=== PATIENT | male | born 1985 | race Caucasian/White ===

== ENCOUNTER 2016-12-06 21:29 | Emergency (ER) | payer SELFPAY ==
--- NOTE | 2016-12-06 21:55 | ED ORDER SUMMARY ---
..... Patient: RAZA HARRY OrderSheet [facility] VisitID: [id number] [address] [place] [address] 31y, M Registration Date/Time: 12/06/2016 ORDER SHEET Weight: 68.0 kg (stated) Allergies: No Known Drug Allergy GENERAL ORDERS: Irrigate Wounds (22:02 12/06/2016 HBivens A.R.N.P.) (22:03 JDeElena R.N.) Dress Wounds (22:12/06/2016 HBivens A.R.N.P.) (22:03 JDeElena R.N.) MEDICATION ORDERS: Tdap IM 0.5 mL (NOW, per protocol) (21:38 12/06/2016 Katharine R.N. verbal order read back to HBivens A.R.N.P.) (Ack 21:38 JDeElensukhjinder R.N.) (21:39 JDeElena R.N.) IV FLUIDS: ORDER SHEET NOTES: [Electronically signed by Paras Mauro R.N. (22:05 12/06/2016)] [Electronically signed by Rafaela CrowR.N.PGayatri (22:25 12/06/2016)] [Electronically locked/signed by Paras Mauro R.N. (22:12/06/2016)]
--- NOTE | 2016-12-06 21:55 | ED NURSING NOTES ---
Clinical Report - Nurses [facility] [address] [place] [address] 12/06/2016 21:29 Patient: RAZA HARRY TRIAGE Triage time 21:32. Acuity: LEVEL 4. Chief Complaint: DOG BITE (Was in the bushes, police dog found him. One bite to R thigh.). Alert. No acute distress. SEPSIS SCREEN: Sepsis Screen: negative. Negative (no infection suspected/documented). --21:36 Paras Mauro R.N. 21:32 12/06/16. BP: 113/84 (regular adult cuff) taken on the left arm, via an automated monitor, while sitting. HR: 87 (normal rate). RR: 16 (regular, unlabored and normal). O2 saturation: 100% on room air. Temp: 97.6 F (oral). Pain level now: 10/17. --21:36 Paras Mauro R.N. Weight: 68 kg stated. Height/Length: 65 inches Per Patient. BMI: 25. --21:33 Paras Mauro R.N. Medications None. --21:34 Paras Mauro R.N. Medication/allergy information source: the patient. --21:36 Paras Mauro R.N. Allergies No Known Drug Allergy. --21:34 Paras Mauro R.N. History Historian: police. Arrived in police custody in police custody and accompanied by police. Location of injuries: right thigh. This occurred just prior to arrival. Circumstances: This was a "provoked" attack. 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 PAST MEDICAL HX: Tetanus status: unknown. SOCIAL HX: Current every day heavy tobacco smoker (cigarette). History of heavy drug use: heroin, methamphetamines. Recently used drugs today. No alcohol use. He has not traveled outside the [place] The patient was not exposed to MRSA. ABUSE ASSESSMENT: Abuse assessment: The patient was asked "Do you feel safe in your home?" and "Has anyone hurt you or threatened to hurt you?". No report of abuse. SELF HARM ASSESSMENT: A self harm assessment was performed. The patient answered "no" to the question "Do you have thoughts of harming or killing yourself?" and "Have you recently had thoughts about harming or killing others?". FALL RISK ASSESSMENT: Fall risk assessment completed. No fall risk identified. NUTRITIONAL RISK ASSESSMENT: The nutritional risk assessment revealed no deficiencies. FUNCTIONAL ASSESSMENT: Functional assessment: no impairments noted. LEARNING NEEDS ASSESSMENT: The learning needs assessment revealed no barriers. SKIN INTEGRITY ASSESSMENT: Skin integrity risk assessment completed. No skin integrity risk identified. --21:36 Paras Mauro R.N. Assessment GENERAL / NEURO / PSYCH: Alert. Oriented X 4. Appears in no acute distress. Ezequiel Coma Scale: 15- eyes open spontaneously (4); best verbal response- oriented x 4 (5); best motor response- obeys commands (6). Patient appears calm and cooperative. RESPIRATORY: Respirations not labored. SKIN: Skin is warm and dry. --21:36 Paras Mauro R.N. Interventions ID band on patient. To treatment room. --21:36 Paras Mauro R.N. PHYSICAL ASSESSMENT Ambulatory to room. GENERAL / NEURO / PSYCH: Alert. Oriented X 4. Appears in no acute distress. RESPIRATORY: Respirations not labored. CVS: Capillary refill less than 2 seconds. EXTREMITIES: Right thigh: multiple puncture wounds (puncture wound x 4, multiple abrasions noted to thigh.). SKIN: Skin is warm and dry. Infection. --21:36 Paras Mauro R.N. NURSING PROGRESS NOTES The initial plan of care for this patient has been created This plan of care was discussed with the patient. Reassurance given to the patient. Two patient identifiers checked. Call light placed in reach. Side rails up x 1. Bed placed in lowest position. Brakes of bed on. --21:37 Paras Mauro R.N. Wound cleansed with sterile saline. --21:37 Paras Mauro R.N. 21:39 12/06/2016 TDAP IM 0.5 mL given. (Lot#: [id number], expiration date: 05/17/2018, Dynamometer Repairer: sanofi pasteur). Given in the left deltoid. Allergies verified and confirmed 5 rights. Vaccine information statement provided to the patient. --21:39 Paras Mauro R.N. 21:40. Wound cleansed with Hibiclens. Wound irrigated with sterile NS. --21:50 ChasMojgan, ER Tech1 21:47. WOUND REPAIR: Assisted by one tech. Procedure: wound repaired with steri-strips. Post-procedure: dressing applied. --21:51 Chas, Mojgan, ER Tech1 22:03 12/06/2016 TDAP IM Response: no adverse reaction. --22:03 Paras Mauro R.N. DISPOSITION / DISCHARGE Departure time: 2200. Condition at departure: stable. The goals identified in the patient's plan of care were met. No learning barriers present. Discharge instructions provided and reviewed with the patient (Police). Patient verbalized understanding. Written instructions provided in [place]i. Verbalized understanding (Police). ( Raza and police verbalize understanding of d/c instructions. They have no questions and voice no concerns at this time. Raza is clear to book at this time.). The patient was discharged by the nurse practitioner. He was discharged to police department facility and accompanied by a police escort. He left the Emergency Department ambulatory and via police department vehicle. EZEQUIEL COMA SCORE: Ezequiel Coma Scale: 15- eyes open spontaneously (4); best verbal response- oriented x 4 (5); best motor response- obeys commands (6). --22:05 Paras Mauro R.N. 22:03 12/06/16. BP: deferred. HR: deferred. RR: deferred. O2 saturation: deferred. Temp: deferred. Pain level now deferred. --22:05 Paras Mauro R.N. Locked/Released at 12/06/2016 22:05 by Paras Mauro R.N.
--- NOTE | 2016-12-06 21:55 | ED ORDER SUMMARY ---
..... Patient: RAZA HARRY OrderSheet [facility] VisitID: [id number] [address] [place] [address] 31y, M Registration Date/Time: 12/06/2016 ORDER SHEET Weight: 68.0 kg (stated) Allergies: No Known Drug Allergy GENERAL ORDERS: Irrigate Wounds (22:02 12/06/2016 HBivens A.R.N.P.) (22:03 JDeElena R.N.) Dress Wounds (22:12/06/2016 HBivens A.R.N.P.) (22:03 JDeElena R.N.) MEDICATION ORDERS: Tdap IM 0.5 mL (NOW, per protocol) (21:38 12/06/2016 Katharine R.N. verbal order read back to HBivens A.R.N.P.) (Ack 21:38 JDeElensukhjinder R.N.) (21:39 JDeElena R.N.) IV FLUIDS: ORDER SHEET NOTES: [Electronically signed by Paras Mauro R.N. (22:05 12/06/2016)] [Electronically signed by Rafaela CrowR.N.PGayatri (22:25 12/06/2016)] [Electronically locked/signed by Paras Mauro R.N. (22:12/06/2016)]
--- NOTE | 2016-12-06 21:55 | ED CLINICAL REPORT ---
Clinical Report - Physicians/Mid Levels [facility] [address] [place] [address] 12/06/2016 21:29 Patient: RAZA HARRY Time Seen: 2127; upon arrival, initial patient contact, initial documentation, patient care assumed. Arrived- In handcuffs. Police present. Historian- patient and police. HISTORY OF PRESENT ILLNESS Location of injuries- right thigh. Chief Complaint: DOG BITE. The injury occurred just prior to arrival. The animal reportedly appeared well and is up to date on immunizations (pt running from police, got bit by police k9). Occurred on a street. 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 REVIEW OF SYSTEMS No swelling, numbness, weakness or tingling. All systems otherwise negative, except as recorded above. PAST HISTORY Negative. Tetanus immunization status is unknown. SOCIAL HISTORY Heavy tobacco smoker. Occasional alcohol use. History of heavy IV drug use: heroin, methamphetamines, marijuana. Recently used drugs just prior to arrival. Under influence in ED. ADDITIONAL NOTES The nursing notes have been reviewed with agreement regarding the chief complaint, HPI, ROS, PMH and patient medications and allergies. PHYSICAL EXAM Vital Signs: 12/06/2016 21:32 BP: 113/84. HR: 87. RR: 16. O2 saturation: 100%. Temp: 97.6 F. Pain level now: 3/10. Have been reviewed as normal and appear to be correct. Appearance: Alert. Oriented X3. No acute distress. Head: Head normal on inspection and non-tender. Eyes: Eyes normal inspection. ENT: Nose normal on inspection. Mouth normal on inspection. Neck: Normal inspection. Neck non-tender. Painless ROM. Respiratory: Chest normal on inspection. Skin: Skin intact. Skin warm and dry. Normal skin color. Normal skin turgor. Extremities: Abnormal inspection. Extremities not atraumatic. Pelvis stable. Right thigh: mild tenderness and subcutaneous 1.0 cm laceration located in the anterior and medial aspect of upper thigh. Neurovascular intact distally. (lac/pw noted to thigh, approx 1/2 cm wide, no active bleeding). No erythema, swelling, abrasion, ecchymosis or puncture wound. No foreign body or deformity. No lower extremity edema. Neuro: Oriented X 3. No motor deficit. No sensory deficit. PROGRESS AND PROCEDURES Course of Care: recommended partial closure with staple, pt declined, stating he would let it heal on its own, pantera were paper not his leg. Patient counseled in person regarding the patient's stable condition and diagnosis. Differential Diagnosis: Other possible considerations: dog bite. Above considerations are based on history and physical exam. Differential diagnosis was discussed with patient. Disposition: Discharged home in good and improved condition (21:55). Condition: good and stable. CLINICAL IMPRESSION Single deep dog bite to the right thigh. INSTRUCTIONS Protect wound and keep wound area clean. Soak in warm soapy water twice daily. (patient is medically cleared to go with police to [facility]). Warnings: TETANUS: You were given a tetanus shot during your visit. Make a note for future reference. Prescription Medications: Augmentin 875 mg: take 1 tablet orally every 12 hours for 7 days. Dispense fourteen (14). No refills. Substitution is permissible. Follow-up: Follow up with your doctor in about two days even if well and for wound check. Call for an appointment. Summary of care provided to patient. Understanding of the discharge instructions verbalized by patient. (Electronically signed by Rafaela Crow A.R.N.P. 12/06/2016 22:25)
--- NOTE | 2016-12-06 21:55 | ED CLINICAL REPORT ---
Clinical Report - Physicians/Mid Levels [facility] [address] [place] [address] 12/06/2016 21:29 Patient: RAZA HARRY Time Seen: 2127; upon arrival, initial patient contact, initial documentation, patient care assumed. Arrived- In handcuffs. Police present. Historian- patient and police. HISTORY OF PRESENT ILLNESS Location of injuries- right thigh. Chief Complaint: DOG BITE. The injury occurred just prior to arrival. The animal reportedly appeared well and is up to date on immunizations (pt running from police, got bit by police k9). Occurred on a street. 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 REVIEW OF SYSTEMS No swelling, numbness, weakness or tingling. All systems otherwise negative, except as recorded above. PAST HISTORY Negative. Tetanus immunization status is unknown. SOCIAL HISTORY Heavy tobacco smoker. Occasional alcohol use. History of heavy IV drug use: heroin, methamphetamines, marijuana. Recently used drugs just prior to arrival. Under influence in ED. ADDITIONAL NOTES The nursing notes have been reviewed with agreement regarding the chief complaint, HPI, ROS, PMH and patient medications and allergies. PHYSICAL EXAM Vital Signs: 12/06/2016 21:32 BP: 113/84. HR: 87. RR: 16. O2 saturation: 100%. Temp: 97.6 F. Pain level now: 3/10. Have been reviewed as normal and appear to be correct. Appearance: Alert. Oriented X3. No acute distress. Head: Head normal on inspection and non-tender. Eyes: Eyes normal inspection. ENT: Nose normal on inspection. Mouth normal on inspection. Neck: Normal inspection. Neck non-tender. Painless ROM. Respiratory: Chest normal on inspection. Skin: Skin intact. Skin warm and dry. Normal skin color. Normal skin turgor. Extremities: Abnormal inspection. Extremities not atraumatic. Pelvis stable. Right thigh: mild tenderness and subcutaneous 1.0 cm laceration located in the anterior and medial aspect of upper thigh. Neurovascular intact distally. (lac/pw noted to thigh, approx 1/2 cm wide, no active bleeding). No erythema, swelling, abrasion, ecchymosis or puncture wound. No foreign body or deformity. No lower extremity edema. Neuro: Oriented X 3. No motor deficit. No sensory deficit. PROGRESS AND PROCEDURES Course of Care: recommended partial closure with staple, pt declined, stating he would let it heal on its own, pantera were paper not his leg. Patient counseled in person regarding the patient's stable condition and diagnosis. Differential Diagnosis: Other possible considerations: dog bite. Above considerations are based on history and physical exam. Differential diagnosis was discussed with patient. Disposition: Discharged home in good and improved condition (21:55). Condition: good and stable. CLINICAL IMPRESSION Single deep dog bite to the right thigh. INSTRUCTIONS Protect wound and keep wound area clean. Soak in warm soapy water twice daily. (patient is medically cleared to go with police to [facility]). Warnings: TETANUS: You were given a tetanus shot during your visit. Make a note for future reference. Prescription Medications: Augmentin 875 mg: take 1 tablet orally every 12 hours for 7 days. Dispense fourteen (14). No refills. Substitution is permissible. Follow-up: Follow up with your doctor in about two days even if well and for wound check. Call for an appointment. Summary of care provided to patient. Understanding of the discharge instructions verbalized by patient. (Electronically signed by Rafaela Crow A.R.N.P. 12/06/2016 22:25)
--- NOTE | 2016-12-06 22:26 | ED DISCHARGE INSTRUCTIONS ---
Patient: RAZA HARRY General Instructions [facility] VisitID: [id number] [place] [address] 31y, M Registration Date/Time: 12/06/2016 Single deep dog bite to the right thigh. INSTRUCTIONS Protect wound and keep wound area clean. Soak in warm soapy water twice daily. (patient is medically cleared to go with police to longterm). Warnings: TETANUS: You were given a tetanus shot during your visit. Make a note for future reference. Prescription Medications: Augmentin 875 mg: take 1 tablet orally every 12 hours for 7 days. Dispense fourteen (14). No refills. Substitution is permissible. Follow-up: Follow up with your doctor in about two days even if well and for wound check. Call for an appointment. Summary of care provided to patient. Understanding of the discharge instructions verbalized by patient. ADDITIONAL INFORMATION Dog Bite If a dog has bitten you and the wound is deep enough to break the skin, an infection may occur. Therefore, you should watch for the warning signs listed below. The doctor may not close the wound completely. This is to allow fluid to drain in the event of an infection. Home Care Watch the wound for signs of infection listed below. In certain types of bites, antibiotics may be prescribed. Begin taking these as soon as possible, as directed until they are all gone. Rabies Prevention If you live in an area where rabies occurs in wild animals, the rabies virus can be passed to cats and dogs. An infected animal can pass the rabies virus to you during a bite. If ahealthy-looking pet dog has bitten you, it should be kept in a secure area for the next 10 days to watch for signs of illness. If the pet scrum product owner wont cooperate with you, contact the [facility] animal control department (or local law enforcement). If the animal becomes ill or dies [id number] days, contact your animal control department at once. The animal must be tested for rabies. If the animal stays healthy for the next 10 days, then there is no danger of rabies in the dog or you. Pets fully vaccinated against rabies (2 shots) are at very low risk for the infection. However, because human rabies is almost always fatal, any biting dog should be kept in confinement for 10 days as an extra precaution. If a stray dog bit you, contact the animal control department. They can provide information on capture, quarantine, and animal rabies testing. If you are unable to locate the animal that bit you in the next 2days, and if rabies exists in your region, you must be evaluated for the rabies vaccine series. Contact your doctor or return here promptly. All animal bites should be reported to the [facility] animal control department. If you were not given a form to fill out, you can report it yourself by calling. Follow Up with your doctor as advised. Most skin wounds heal within 10 days. However, an infection may occur even with proper treatment. Check your woundevery 6 hoursfor 2 days, then at least once a day for the next two days for the signs of infection listed below. Get Prompt Medical Attention if any of the following occur: Signs of infection: Spreading redness Increased pain or swelling Fever of 100.4F (38C) or higher, or as directed by your healthcare provider Colored fluid or pus draining from the wound Headache, confusion, strange behavior, or a seizure (signs of a rabies infection) Diphtheria Toxoid Adsorbed, Pertussis Vaccine, Acellular (Adsorbed), Tetanus Toxoid, Adsorbed Suspension for injection What is this medicine? DIPHTHERIA and TETANUS TOXOIDS; PERTUSSIS VACCINE (dif THEER ee uh and TET n us TOK soids; per IRINA stephens SEEN) is used to prevent diphtheria, tetanus, and pertussis infections. How should I use this medicine? This vaccine is for injection into a muscle. It is given by a health wound care technician. A copy of Vaccine Information Statements will be given before each vaccination. Read this sheet carefully each time. The sheet may change frequently. Talk to your cyber reverse engineer regarding the use of this vaccine in children. While the DTP vaccine may be given to children ages 6 weeks to 7 years and the Tdap vaccine may be given to children at least 10 years old, precautions do apply. What side effects may I notice from receiving this medicine? Side effects that you should report to your doctor or health wound care technician as soon as possible: allergic reactions like skin rash, itching or hives, swelling of the face, lips, or tongue breathing problems fever of 103 degrees F or more flu-like symptoms inconsolable crying infection pain, tingling, numbness in the hands or feet seizures swelling of arm or leg that was injected unusually weak or tired Side effects that usually do not require immediate medical attention (report these side effects to your doctor or health wound care technician if they continue or are bothersome): fussy, irritable loss of appetite fever of 102 degrees F or less pain, tenderness, redness, swelling, or a 'knot' at site where injected vomiting What may interact with this medicine? immune globulin medicines that suppress your immune function like adalimumab, anakinra, infliximab medicines to treat cancer medicines that treat or prevent blood clots like warfarin, enoxaparin, and dalteparin steroid medicines like prednisone or cortisone What if I miss a dose? It is important not to miss your dose. Call your doctor or health wound care technician if you are unable to keep an appointment. Where should I keep my medicine? This drug is given in a hospital or clinic and will not be stored at home. What should I tell my health care provider before I take this medicine? They need to know if you have any of these conditions: blood disorders like hemophilia fever or infection immune system problems neurologic disease seizures an unusual or allergic reaction to vaccines, thimerosal, latex, other medicines, foods, dyes, or preservatives or trying to get breast-feeding What should I watch for while using this medicine? See your health care provider for all shots of this vaccine as directed. To have protection from infection, you must have 3 shots of this vaccine plus boosters as needed. Tell your doctor right away if you have any serious or unusual side effects after getting this vaccine. Amoxicillin Trihydrate, Clavulanate Potassium Oral tablet What is this medicine? AMOXICILLIN; CLAVULANIC ACID (a mox i ELZBIETA in; MARVIN morrow ic id) is a penicillin antibiotic. It is used to treat certain kinds of bacterial infections. It will not work for colds, flu, or other viral infections. How should I use this medicine? Take this medicine by mouth with a full glass of water. Follow the directions on the prescription label. Take at the start of a meal. Do not crush or chew. If the tablet has a score line, you may cut it in half at the score line for easier swallowing. Take your medicine at regular intervals. Do not take your medicine more often than directed. Take all of your medicine as directed even if you think you are better. Do not skip doses or stop your medicine early. Talk to your cyber reverse engineer regarding the use of this medicine in children. Special care may be needed. What side effects may I notice from receiving this medicine? Side effects that you should report to your doctor or health wound care technician as soon as possible: allergic reactions like skin rash, itching or hives, swelling of the face, lips, or tongue breathing problems dark urine fever or chills, sore throat redness, blistering, peeling or loosening of the skin, including inside the mouth seizures trouble passing urine or change in the amount of urine unusual bleeding, bruising unusually weak or tired white patches or sores in the mouth or throat Side effects that usually do not require medical attention (report to your doctor or health wound care technician if they continue or are bothersome): diarrhea dizziness headache nausea, vomiting stomach upset vaginal or anal irritation What may interact with this medicine? allopurinol anticoagulants control pills methotrexate probenecid What if I miss a dose? If you miss a dose, take it as soon as you can. If it is almost time for your next dose, take only that dose. Do not take double or extra doses. Where should I keep my medicine? Keep out of the reach of children. Store at room temperature below 25 degrees C (77 degrees F). Keep container tightly closed. Throw away any unused medicine after the expiration date. What should I tell my health care provider before I take this medicine? They need to know if you have any of these conditions: bowel disease, like colitis kidney disease liver disease mononucleosis an unusual or allergic reaction to amoxicillin, penicillin, cephalosporin, other antibiotics, clavulanic acid, other medicines, foods, dyes, or preservatives or trying to get breast-feeding What should I watch for while using this medicine? Tell your doctor or health wound care technician if your symptoms do not improve. Do not treat diarrhea with over the counter products. Contact your doctor if you have diarrhea that lasts more than 2 days or if it is severe and watery. If you have diabetes, you may get a false-positive result for sugar in your urine. Check with your doctor or health wound care technician. control pills may not work properly while you are taking this medicine. Talk to your doctor about using an extra method of control. You have been given the following additional information: Dog Bite Diphtheria Toxoid Adsorbed, Pertussis Vaccine, Acellular (Adsorbed), Tetanus Toxoid, Adsorbed Suspension for injection Amoxicillin Trihydrate, Clavulanate Potassium Oral tablet (Electronically signed by Rafaela Crow A.R.N.P. 12/06/2016 22:25)
--- NOTE | 2016-12-06 22:26 | ED MED RECONCILIATION SUMMARY ---
Patient: RAZA HARRY Medication Reconciliation Report [facility] VisitID: [id number] [address] [place] [address] 31y, M Registration Date/Time: 12/06/2016 Weight: 68.0 kg Height/Length: 65 in. BMI: 25.0 ALLERGIES: No Known Drug Allergy The patient's Home Medications are listed below: NONE. The source(s) of the original Home Medication information: patient The following Medications were given to the patient in the Emergency Department: TDAP [IM] IM 0.5 mL, administered: 12/06/2016 9:39:00 PM The following Medications were prescribed to the patient: Augmentin 875 mg: take 1 tablet orally every 12 hours for 7 days. Dispense fourteen (14). No refills. Substitution is permissible. -- Rafaela Crow A.R.N.P.
--- NOTE | 2016-12-06 22:26 | ED DISCHARGE INSTRUCTIONS ---
Patient: RAZA HARRY General Instructions [facility] VisitID: [id number] [place] [address] 31y, M Registration Date/Time: 12/06/2016 Single deep dog bite to the right thigh. INSTRUCTIONS Protect wound and keep wound area clean. Soak in warm soapy water twice daily. (patient is medically cleared to go with police to residential). Warnings: TETANUS: You were given a tetanus shot during your visit. Make a note for future reference. Prescription Medications: Augmentin 875 mg: take 1 tablet orally every 12 hours for 7 days. Dispense fourteen (14). No refills. Substitution is permissible. Follow-up: Follow up with your doctor in about two days even if well and for wound check. Call for an appointment. Summary of care provided to patient. Understanding of the discharge instructions verbalized by patient. ADDITIONAL INFORMATION Dog Bite If a dog has bitten you and the wound is deep enough to break the skin, an infection may occur. Therefore, you should watch for the warning signs listed below. The doctor may not close the wound completely. This is to allow fluid to drain in the event of an infection. Home Care Watch the wound for signs of infection listed below. In certain types of bites, antibiotics may be prescribed. Begin taking these as soon as possible, as directed until they are all gone. Rabies Prevention If you live in an area where rabies occurs in wild animals, the rabies virus can be passed to cats and dogs. An infected animal can pass the rabies virus to you during a bite. If ahealthy-looking pet dog has bitten you, it should be kept in a secure area for the next 10 days to watch for signs of illness. If the pet renewable energy broker wont cooperate with you, contact the [facility] animal control department (or local law enforcement). If the animal becomes ill or dies [id number] days, contact your animal control department at once. The animal must be tested for rabies. If the animal stays healthy for the next 10 days, then there is no danger of rabies in the dog or you. Pets fully vaccinated against rabies (2 shots) are at very low risk for the infection. However, because human rabies is almost always fatal, any biting dog should be kept in confinement for 10 days as an extra precaution. If a stray dog bit you, contact the animal control department. They can provide information on capture, quarantine, and animal rabies testing. If you are unable to locate the animal that bit you in the next 2days, and if rabies exists in your region, you must be evaluated for the rabies vaccine series. Contact your doctor or return here promptly. All animal bites should be reported to the [facility] animal control department. If you were not given a form to fill out, you can report it yourself by calling. Follow Up with your doctor as advised. Most skin wounds heal within 10 days. However, an infection may occur even with proper treatment. Check your woundevery 6 hoursfor 2 days, then at least once a day for the next two days for the signs of infection listed below. Get Prompt Medical Attention if any of the following occur: Signs of infection: Spreading redness Increased pain or swelling Fever of 100.4F (38C) or higher, or as directed by your healthcare provider Colored fluid or pus draining from the wound Headache, confusion, strange behavior, or a seizure (signs of a rabies infection) Diphtheria Toxoid Adsorbed, Pertussis Vaccine, Acellular (Adsorbed), Tetanus Toxoid, Adsorbed Suspension for injection What is this medicine? DIPHTHERIA and TETANUS TOXOIDS; PERTUSSIS VACCINE (dif THEER ee uh and TET n us TOK soids; per IRINA stephens SEEN) is used to prevent diphtheria, tetanus, and pertussis infections. How should I use this medicine? This vaccine is for injection into a muscle. It is given by a health group care worker. A copy of Vaccine Information Statements will be given before each vaccination. Read this sheet carefully each time. The sheet may change frequently. Talk to your sales correspondence clerk regarding the use of this vaccine in children. While the DTP vaccine may be given to children ages 6 weeks to 7 years and the Tdap vaccine may be given to children at least 10 years old, precautions do apply. What side effects may I notice from receiving this medicine? Side effects that you should report to your doctor or health group care worker as soon as possible: allergic reactions like skin rash, itching or hives, swelling of the face, lips, or tongue breathing problems fever of 103 degrees F or more flu-like symptoms inconsolable crying infection pain, tingling, numbness in the hands or feet seizures swelling of arm or leg that was injected unusually weak or tired Side effects that usually do not require immediate medical attention (report these side effects to your doctor or health group care worker if they continue or are bothersome): fussy, irritable loss of appetite fever of 102 degrees F or less pain, tenderness, redness, swelling, or a 'knot' at site where injected vomiting What may interact with this medicine? immune globulin medicines that suppress your immune function like adalimumab, anakinra, infliximab medicines to treat cancer medicines that treat or prevent blood clots like warfarin, enoxaparin, and dalteparin steroid medicines like prednisone or cortisone What if I miss a dose? It is important not to miss your dose. Call your doctor or health group care worker if you are unable to keep an appointment. Where should I keep my medicine? This drug is given in a hospital or clinic and will not be stored at home. What should I tell my health care provider before I take this medicine? They need to know if you have any of these conditions: blood disorders like hemophilia fever or infection immune system problems neurologic disease seizures an unusual or allergic reaction to vaccines, thimerosal, latex, other medicines, foods, dyes, or preservatives or trying to get breast-feeding What should I watch for while using this medicine? See your health care provider for all shots of this vaccine as directed. To have protection from infection, you must have 3 shots of this vaccine plus boosters as needed. Tell your doctor right away if you have any serious or unusual side effects after getting this vaccine. Amoxicillin Trihydrate, Clavulanate Potassium Oral tablet What is this medicine? AMOXICILLIN; CLAVULANIC ACID (a mox i ELZBIETA in; MARVIN morrow ic id) is a penicillin antibiotic. It is used to treat certain kinds of bacterial infections. It will not work for colds, flu, or other viral infections. How should I use this medicine? Take this medicine by mouth with a full glass of water. Follow the directions on the prescription label. Take at the start of a meal. Do not crush or chew. If the tablet has a score line, you may cut it in half at the score line for easier swallowing. Take your medicine at regular intervals. Do not take your medicine more often than directed. Take all of your medicine as directed even if you think you are better. Do not skip doses or stop your medicine early. Talk to your sales correspondence clerk regarding the use of this medicine in children. Special care may be needed. What side effects may I notice from receiving this medicine? Side effects that you should report to your doctor or health group care worker as soon as possible: allergic reactions like skin rash, itching or hives, swelling of the face, lips, or tongue breathing problems dark urine fever or chills, sore throat redness, blistering, peeling or loosening of the skin, including inside the mouth seizures trouble passing urine or change in the amount of urine unusual bleeding, bruising unusually weak or tired white patches or sores in the mouth or throat Side effects that usually do not require medical attention (report to your doctor or health group care worker if they continue or are bothersome): diarrhea dizziness headache nausea, vomiting stomach upset vaginal or anal irritation What may interact with this medicine? allopurinol anticoagulants control pills methotrexate probenecid What if I miss a dose? If you miss a dose, take it as soon as you can. If it is almost time for your next dose, take only that dose. Do not take double or extra doses. Where should I keep my medicine? Keep out of the reach of children. Store at room temperature below 25 degrees C (77 degrees F). Keep container tightly closed. Throw away any unused medicine after the expiration date. What should I tell my health care provider before I take this medicine? They need to know if you have any of these conditions: bowel disease, like colitis kidney disease liver disease mononucleosis an unusual or allergic reaction to amoxicillin, penicillin, cephalosporin, other antibiotics, clavulanic acid, other medicines, foods, dyes, or preservatives or trying to get breast-feeding What should I watch for while using this medicine? Tell your doctor or health group care worker if your symptoms do not improve. Do not treat diarrhea with over the counter products. Contact your doctor if you have diarrhea that lasts more than 2 days or if it is severe and watery. If you have diabetes, you may get a false-positive result for sugar in your urine. Check with your doctor or health group care worker. control pills may not work properly while you are taking this medicine. Talk to your doctor about using an extra method of control. You have been given the following additional information: Dog Bite Diphtheria Toxoid Adsorbed, Pertussis Vaccine, Acellular (Adsorbed), Tetanus Toxoid, Adsorbed Suspension for injection Amoxicillin Trihydrate, Clavulanate Potassium Oral tablet (Electronically signed by Rafaela Crow A.R.N.P. 12/06/2016 22:25)
--- NOTE | 2016-12-06 22:26 | ED MAR SUMMARY ---
..... Medication Administration Record [facility] [address] [place] [address] Patient: RAZA HARRY Visit ID: [id number] 31y, M Weight: 68.0 kg Height/Length: 65 in BMI: 25 ALLERGIES: No Known Drug Allergy Given 21:39 12/06/2016 Paras Mauro R.N. Medication Administered: TDAP [IM], Dose: 0.5 mL IM. Medication Ordered: Tdap IM 0.5 mL (NOW, per protocol).
--- NOTE | 2016-12-06 22:26 | ED MED RECONCILIATION SUMMARY ---
Patient: RAZA HARRY Medication Reconciliation Report [facility] VisitID: [id number] [address] [place] [address] 31y, M Registration Date/Time: 12/06/2016 Weight: 68.0 kg Height/Length: 65 in. BMI: 25.0 ALLERGIES: No Known Drug Allergy The patient's Home Medications are listed below: NONE. The source(s) of the original Home Medication information: patient The following Medications were given to the patient in the Emergency Department: TDAP [IM] IM 0.5 mL, administered: 12/06/2016 9:39:00 PM The following Medications were prescribed to the patient: Augmentin 875 mg: take 1 tablet orally every 12 hours for 7 days. Dispense fourteen (14). No refills. Substitution is permissible. -- Rafaela Crow A.R.N.P.
--- NOTE | 2016-12-06 22:26 | ED MAR SUMMARY ---
..... Medication Administration Record [facility] [address] [place] [address] Patient: RAZA HARRY Visit ID: [id number] 31y, M Weight: 68.0 kg Height/Length: 65 in BMI: 25 ALLERGIES: No Known Drug Allergy Given 21:39 12/06/2016 Paras Mauro R.N. Medication Administered: TDAP [IM], Dose: 0.5 mL IM. Medication Ordered: Tdap IM 0.5 mL (NOW, per protocol).
== END 2016-12-06 22:01 ==
LOC: ED SRH 21:29
DX: S71.151A Open bite, right thigh, initial encounter (principal); W54.0XXA Bitten by dog, initial encounter; Y93.02 Activity, running; Y92.410 Unspecified street and highway as the place of occurrence of the external cause; Y99.8 Other external cause status; Z02.89 Encounter for other administrative examinations; Z23 Encounter for immunization; F15.90 Other stimulant use, unspecified, uncomplicated; F11.90 Opioid use, unspecified, uncomplicated; F12.90 Cannabis use, unspecified, uncomplicated